=== PATIENT | male | born 1995 | race Caucasian/White ===

== ENCOUNTER 2019-10-17 21:21 | Emergency (ER) | payer BC, SELFPAY ==
[2019-10-17 21:30] VITALS: BP 162/103; PULSE 96; RESP 16; TEMP 36.8; O2SAT 99; BMI 24.3
--- NOTE | 2019-10-17 21:33 | DI.RAD.S_ITS ---
PROCEDURE: XR ABDOMEN 1V INDICATIONS: ? fecal impaction. TECHNIQUE: One view of the abdomen acquired. COMPARISON: None. FINDINGS: Surgical changes and devices: None. Bowel: Bowel gas pattern is normal. There is a moderate volume of formed stool in the descending and sigmoid colon. There is no obvious radiographic evidence of impacted stool in the rectum. There is no abnormally dilated loops of bowel. Soft tissues: No suspicious abdominal calcifications. Visualized solid organ contours appear normal in size. Bones: No suspicious bony lesions. IMPRESSION: Moderate volume of formed stool throughout the distal colon which could indicate constipation. No evidence of fecal impaction radiographically. Dictated by: Steven Allison M.D. on 10/17/2019 at 21:48 Approved by: Steven Allison M.D. on 10/17/2019 at 21:49
--- NOTE | 2019-10-17 21:54 | ED_ITS ---
HPI - Abdominal Pain General Chief Complaint: Abdominal Pain Stated Complaint: thinks has a fecal impaction Time Seen by Provider: 10/17/19 21:54 Source: patient Mode of arrival: Ambulatory Limitations: no limitations History of Present Illness HPI narrative: 24-year-old gentleman with no other significant medical history presents with generalized abdominal pain. Six days ago he had a low-grade fever general malaise mild nausea all of which resolved after approximately 48 hours. Was eating small amounts only during that time period in the ensuing days he is not return to regular bowel movements. He notes that he has got some generalized discomfort, no nausea no fevers. Today he tried an enema (that probably was not use properly/effectively) as well as for Dulcolax chews to no avail. Related Data Home Medications Medication Instructions Recorded Confirmed No Known Home Medications 06/07/18 06/07/18 Allergies Allergy/AdvReac Type Severity Reaction Status Date / Time No Known Drug Allergies Allergy Verified 06/07/18 10:23 Review of Systems Review of Systems Narrative: Pertinent positive and negative findings as per HPI Remainder of review of systems is otherwise unremarkable for Constitutional: Fevers, chills, weakness ENT: No sore throat, neck pain, ear pain CV: Chest pain, palpitations, dyspnea on exertion Respiratory: Cough, wheeze, dyspnea : Dysuria, hematuria, flank pain MS: Muscle weakness, numbness, joint swelling or warmth Skin: Rashes, nonhealing lesions Neuro: Syncope, dizziness, tingling Patient History Social History Smoking Status: Current some day smoker alcohol intake: current Smoking Status: Current some day smoker alcohol intake frequency: 0-2 drinks per day Substance Use Type: does not use Exam Narrative Exam Narrative: General: Healthy appearing, in no acute distress. Able to give a complete and coherent history. Well-nourished well-developed HEENT: Moist mucous membranes, normal sclera with reactive pupils, Neck: , supple Respiratory: Lungs are clear to auscultation, no wheezing no rales no rhonchi. Full and symmetrical air movement Cardiac: Regular rate and rhythm no murmurs no bruits Abdomen: Soft nontender good bowel tones, no flank pain Skin: Warm and dry, no rashes Neurologic: Grossly neurologically intact with no obvious asymmetries or abnormalities Extremities: No trauma, well perfused Psych: Cooperative, appropriate insight and affect Initial Vital Signs Initial Vital Signs: Vital Signs Temperature 98.2 F 10/17/19 21:30 Pulse Rate 96 H 10/17/19 21:30 Respiratory Rate 16 10/17/19 21:30 Blood Pressure 162/103 H 10/17/19 21:30 Pulse Oximetry 99 10/17/19 21:30 Course Orders Ordered: ED Orders 10/17/19 21:33 XR abdomen 1V Stat Discontinued Medications Magnesium Citrate (Magnesium Citrate) 300 ml PO NOW ONE Stop: 10/17/19 22:10 Last Admin: 10/17/19 22:13 Dose: 300 ml Documented by: Vital Signs Vital signs: Vital Signs - 8 hr 10/17/19 21:30 Temperature 98.2 F Pulse Rate 96 H Respiratory Rate 16 Blood Pressure 162/103 H Pulse Oximetry 99 MDM - Abdominal Pain Medical Records Attestation: I reviewed the patient's medical records. Imaging Data Abdominal x-ray: Radiologist's Impression: IMPRESSION: Moderate volume of formed stool throughout the distal colon which could indicate constipation. No evidence of fecal impaction radiographically. Dictated by: Steven Allison M.D. on 10/17/2019 at 21:48 MDM Narrative Medical decision making narrative: 24-year-old gentleman with a very benign exam and abdominal film consistent with constipation. Safe for home discharge. Discharge Plan Departure Patient Disposition: Home Clinical Impression: Constipation Instructions: DI for Constipation Activity Restrictions/Additional Instructions: Thank you for coming in today. Your history, exam and the belly x-ray are all consistent with constipation. The Dulcolax chewies that you got were a perfect 1st option. I am going to sug gest that you go ahead and go home and go to bed this evening. In the morning have your usual coffee and exercise and if you have a large bowel movement than everything is fine. If you do not, then drink half of the bottle of magnesium citrate. If you still have not had a bowel movement within 4 hours drink the 2nd half of the magnesium citrate. If you still have not had a bowel movement by the following day, go to the grocery store by a 2nd bottle of magnesium citrate drink the entire thing at 1 time. I wish you well Prescriptions: No Action No Known Home Medications RF: 0
[2019-10-17] MEDS: MAGNESIUM CITRATE 300 ML SOLUTION PO (22:13)
== END 2019-10-17 22:19 | disposition home or self-care (01) ==
PROVIDERS: Emergency Provider Emergency Medicine
DX: K59.00 Constipation, unspecified (principal); R50.9 Fever, unspecified; R11.0 Nausea
CPT/HCPCS: 74018; 99283

== ENCOUNTER 2019-10-28 20:51 | Emergency (ER) | payer BC, SELFPAY ==
[2019-10-28 20:57] VITALS: BP 128/81; PULSE 87; RESP 16; TEMP 37; O2SAT 100; BMI 23.7
[2019-10-28] MEDS: OFLOXACIN 0.3% OPHTH PREPACK 1 BOTTLE MISC (21:15)
--- NOTE | 2019-10-28 22:27 | ED_ITS ---
HPI - Ear Problem General Chief complaint: Ear Stated complaint: states swimmers ear Time Seen by Provider: 10/28/19 20:55 Source: patient Mode of arrival: Ambulatory Limitations: no limitations History of Present Illness HPI Narrative: 24 year old male, smoker, with non-contributory medical history presents with the chief complaint of bilateral ear irritation and concern for swimmer's ear. He states that he was swimming at [facility] today and had been jumping off of some of the cliffs. He does not state there was any significant event or obvious trauma, but states it has been increasingly irritated in the 4 hours since he was swimming. He denies fever or chills. He denies drainage or difficulty with hearing. He's had no sore throat or cough. He is not dizzy, weak, or lightheaded. MD Complaint: other Location: bilateral Duration: constant Severity: mild Relieving factors: nothing Exacerbating factors: nothing Discharge from ear: no Treatment prior to arrival: none Related Data Home Medications Medication Instructions Recorded Confirmed No Known Home Medications 06/07/18 06/07/18 Allergies Allergy/AdvReac Type Severity Reaction Status Date / Time No Known Drug Allergies Allergy Verified 06/07/18 10:23 Review of Systems Constitutional Constitutional: Denies chills, Denies fatigue, Denies fever(s), Denies frequent falls, Denies lethargy and Denies weakness Eyes Eyes: Denies change in vision, Denies eye discharge, Denies irritation and Denies loss of vision ENT Ears, Nose, Mouth, and Throat: Denies change in voice, Denies dizziness, Denies neck pain, Denies sore throat and Denies throat swelling Comments: ear irritation Cardiovascular Cardiovascular: Denies chest pain, Denies irregular heart rhythm, Denies lightheadedness, Denies palpitations, Denies dyspnea, Denies dyspnea on exertion and Denies orthopnea Respiratory Respiratory: Denies cough, Denies dyspnea, Denies dyspnea on exertion and Denies wheezing Gastrointestinal Gastrointestinal: Denies abdominal pain, Denies change in bowel habits, Denies diarrhea, Denies nausea and Denies vomiting Musculoskeletal Musculoskeletal: Denies neck pain and Denies numbness Integumentary/Breasts Skin/Breast: Denies pruritus, Denies erythema, Denies rash and Denies wounds Neurologic Neurologic: Denies behavioral changes, Denies confusion, Denies dizziness, Denies frequent falls, Denies loss of vision, Denies numbness and Denies weakness Psychiatric Psychiatric: Denies anxiety, Denies behavioral changes, Denies confusion, Denies depression, Denies homicidal ideation and Denies suicidal ideation Endocrine Endocrine: Denies fatigue, Denies flushing and Denies palpitations Hematologic/Lymphatic Hematologic/Lymphatic: Denies easy bruising Allergic/Immunologic Allergic/Immunologic: Denies urticaria, Denies throat swelling and Denies wheezing Patient History Social History Smoking Status: Current some day smoker alcohol intake: current Smoking Status: Current some day smoker alcohol intake frequency: 0-2 drinks per day Substance Use Type: does not use Exam Narrative Exam Narrative: GEN: AOx3 and in mild distress EYES: Pupils are equal, round, and reactive to light and accommodation. Extraoccular muscles are intact bilaterally. There is no subconjunctival hemorrhage or exudate. EARS: minimal erythema in B/L EAC. No TM erythema, bulging, drainage or obvious TM perforation CHEST: Lungs are clear to auscultation bilaterally and free of wheezes, rales, or rhonchi. Heart rate is regular rhythm, there are no murmurs, clicks, rubs, or gallops. There is no chest wall tenderness. ABD: Abdomen is soft and nontender. There is no guarding or rebound. Bowel sounds are normal in all 4 quadrants. There is no mass or organomegaly. EXT: Full painless ROM of all extremities with no loss of sensation or strength. SKIN: Warm, pink, and dry. No erythema or rash Initial Vital Signs Initial Vital Signs: Vital Signs Temperature 98.6 F 10/28/19 20:57 Pulse Rate 87 10/28/19 20:57 Respiratory Rate 16 10/28/19 20:57 Blood Pressure 128/81 10/28/19 20:57 Pulse Oximetry 100 10/28/19 20:57 Course Orders Ordered: Discontinued Medications Ofloxacin (Ocuflox) 1 bottle MISC SEEINSTR ONE Stop: 10/28/19 21:06 Last Admin: 10/28/19 21:15 Dose: 5 drop Documented by: MIKE Vital Signs Vital signs: Vital Signs - 8 hr 10/28/19 20:57 Temperature 98.6 F Pulse Rate 87 Respiratory Rate 16 Blood Pressure 128/81 Pulse Oximetry 100 Discharge Plan Departure Patient Disposition: Home Clinical Impression: Otitis externa Qualifiers: Otitis externa type: unspecified type Chronicity: unspecified Laterality: bilateral Qualified Code(s): H60.93 - Unspecified otitis externa, bilateral Discharge Date/Time: 10/28/19 21:19 Instructions: DI for Otitis Externa Activity Restrictions/Additional Instructions: *You have been diagnosed with [bilateral swimmer's ear, perhaps a small ruptured ear drum on the left] *What to do: *Take medications as directed: 5 drops each ear daily for 7 days *Follow up with your primary care provider in 2-3 days, call for an appointment. Let them know you were seen in the Emergency Department and that we ask that you be seen in follow up *Return to ER if you should have any new, worsening or concerning symptoms Prescriptions: No Action No Known Home Medications RF: 0 Referrals: Honorio Barton MD [Physician] -
== END 2019-10-28 21:19 | disposition home or self-care (01) ==
PROVIDERS: Emergency Provider Emergency Medicine
DX: H60.93 Unspecified otitis externa, bilateral (principal)
CPT/HCPCS: 99281; 99283